=== PATIENT | female | born 1935 | race Caucasian/White ===

== ENCOUNTER 2016-07-10 16:44 | Inpatient (IN) | payer OTHER ==
--- NOTE | ~2016-07-10 | HP ---
History And Physical [address] [place]. [address] NAME: MELANI GONZALEZ : 37 STATUS : ADM IN PAT#: [id number] AGE: 81 ADM/REG DATE : 07/10/16 MR#: [id number] REPORT SERV DATE: 07/11/16 DICTATED BY: JITENDRA NEIL DATE: 07/10/16 REPORT STATUS : Draft TRANSCRIBED BY: MODL DATE: 07/10/16 DATE OF ADMISSION: 07/10/2016 POINT OF ENTRY: [facility] Emergency Department. PRIMARY CARE PHYSICIAN: None at this time. CHIEF COMPLAINT: Altered mental status. HISTORY OF PRESENT ILLNESS: Ms. Gonzalez is an 81-year-old female with history of COPD, hypertension, and hyperlipidemia, who was brought to the emergency department by EMS today for reports of altered mental status and also incidentally found to have hypoglycemia with a blood sugar of 66. The patient is altered and unable to provide any history. Unfortunately, there was no family at bedside. I do not know why EMS was called, but when they came to the scene, she was found to have a blood sugar of 66. She was given some oral glucose tablets. Upon initial evaluation here in the emergency department, her blood sugar was 116 and few hours later, it dropped to 76 requiring an amp of D50, and it is now greater than 200. Workup in the ER is notable for stable vital signs. Labs unremarkable, except for a mild metabolic acidosis. Urine drug screen was negative. CT scan of the brain was unremarkable. Serum drug screen was positive for salicylate level of 39.7. In addition to the D50 for hypoglycemia, the patient was started on a bicarbonate drip for her salicylate toxicity and admitted to the Hospitalist Service for further evaluation and management. REVIEW OF SYSTEMS: The patient is unable to provide to me any review of systems secondary to her altered mental status. PREVIOUS MEDICAL HISTORY: 1. COPD. 2. Active tobacco abuse. 3. Hypertension. 4. Hyperlipidemia. SURGICAL HISTORY: Unknown due to altered mental status. ALLERGIES: UNKNOWN DUE TO ALTERED MENTAL STATUS. HOME MEDICATIONS: These have yet to be confirmed by pharmacy in the morning, but include: 1. Alendronate. 2. Lotrel. 3. Symbicort. 4. Lipitor. 5. Zyrtec. 6. Singulair. History And Physical [address] [place]. [address] NAME: MELANI GONZALEZ : 37 STATUS : ADM IN [facility]#: [id number] AGE: 81 ADM/REG DATE : 07/10/16 MR#: [id number] REPORT SERV DATE: 07/11/16 DICTATED BY: JITENDRA NEIL DATE: 07/10/16 REPORT STATUS : Draft TRANSCRIBED BY: MODL DATE: 07/10/16 7. MiraLAX. 8. Spiriva. 9. ProAir. SOCIAL HISTORY: She does endorse smoking. Denies any alcohol. Denies any illicits. FAMILY HISTORY: Unknown secondary to altered mental status. LABORATORIES AND IMAGIN. ABG; pH is 7.33, pCO2 is 44, pO2 is 87, bicarbonate is 22.5, saturating 96% on 2 L by nasal cannula. 2. Sodium 140, potassium 3.5, chloride 107, carbon dioxide 27, BUN 19, creatinine 0.41, glucose is 103, calcium is 7.5, protein is 6.2, albumin is 3.1, bilirubin is 0.7, ALT is 33, AST is 34, alkaline phosphatase is 75. 3. White count is 7.0, hemoglobin is 12.1, hematocrit is 35.6, platelet count is 215. 4. Troponin 0.02. 5. Urine drug screen is negative. Acetaminophen and alcohol levels also negative. Salicylate level is 39.7. 6. Urinalysis: Specific gravity is 1.026. Positive ketones. Negative infection. 7. Chest x-ray per my review shows COPD-type changes with hyperinflation and prominent vasculature as well as flattened diaphragms, but no focal consolidation or infiltrate. 8. CT scan of the brain shows chronic ischemic changes, but no acute intracranial abnormality. PHYSICAL EXAMINATION: VITAL SIGNS: Temperature is 98.1 degrees Fahrenheit, pulse is 71, respirations 19, saturating 97% on 2 L by nasal cannula, blood pressure 110/53. GENERAL: The patient is awake, alert. She is disheveled and unkempt appearing elderly female. No family is at bedside. HEENT: Atraumatic and normocephalic. The patient does have moist mucous membranes, but also evidence of oropharyngeal thrush. NECK: No jugular venous distention. No carotid bruits. CARDIAC: Regular rate and rhythm. No murmurs, rubs, or gallops. Normal S1 and S2. LUNGS: Prolonged respiratory phase and decreased breath sounds at bases, but no wheezes, rhonchi, or crackles. ABDOMEN: Soft, nontender, nondistended. Good bowel sounds. No rebound, guarding, or rigidity. EXTREMITIES: Warm and well perfused. No cyanosis, clubbing, or edema. SKIN: Warm and dry. PSYCH: Affect appropriate. NEURO: The patient is awake, alert, able to tell me her name and her date, but otherwise is not oriented to place or time. Cranial nerves II through XII are grossly intact. Speech is normal. Gait not assessed. The patient does have some evidence of memory impairment as well as what appears to be some confabulation and perseveration as well. ASSESSMENT: Ms. Gonzalez is an 81-year-old female, brought to the emergency department by EMS [facility] [address] [address] NAME: MELANI GONZALEZ : 37 STATUS : ADM IN [facility]#: [id number] AGE: 81 ADM/REG DATE : 07/10/16 MR#: [id number] REPORT SERV DATE: 07/11/16 DICTATED BY: JITENDRA NEIL DATE: 07/10/16 REPORT STATUS : Draft TRANSCRIBED BY: CECE DATE: 07/10/16 for altered mental status, found to have evidence of hypoglycemia as well as salicylate toxicity. PROBLEM LIST: 1. Acute encephalopathy. 2. Hypoglycemia, now resolved. 3. Salicylate toxicity. 4. Active tobacco abuse. 5. Chronic obstructive pulmonary disease. 6. Hypertension. PLAN: 1. Altered mental status. The patient's altered mental status is likely secondary to her salicylate toxicity as well as from her hypoglycemia. CT scan of the brain is unremarkable. Urine drug screen, urinalysis, and other workup so far has been unremarkable. We will check ammonia level, thyroid function studies as well as B12. Given evidence of the patient's confabulation and persistent altered mental status despite correction of her hypoglycemia, we will check an MRI of the brain with and without contrast as well as place the patient empirically on thiamine, folate, and a multivitamin. Hold all sedating medications. 2. Hypoglycemia. This has now resolved. There does not appear to be any history of diabetes. I suspect this is all due to her salicylate toxicity. We will check q.2 hours glucose's overnight to ensure that she stays euglycemic to slightly hyperglycemic. Continue D5 drip. 3. Salicylate toxicity. The patient's level of 39.7 is just mildly above the upper limit of normal. She does not have any nausea or vomiting. She is altered and unable to tell me if she has any tinnitus, but does have altered mental status concerning for salicylate toxicity. She received an amp of bicarb in the ER and is now on a bicarb drip for alkalinization of her urine. We are going to maintain normal glucose levels. We will repeat an aspirin level in the morning. 4. COPD. No evidence of any acute exacerbation at this time. We will place her on p.r.n. DuoNeb. 5. DVT prophylaxis. Lovenox subcutaneously. CODE STATUS: The patient wished to be full code. JCB/MODL Jitendra Neil MD / [id number] CC: Vinicio Sarkar MD
--- NOTE | ~2016-07-10 | IDS ---
Interim Discharge Summary [facility] [address] [place]. [address] NAME: MELANI GONZALEZ : 37 STATUS : ADM IN PAT#: [id number] AGE: 81 ADM/REG DATE : 07/10/16 MR#: [id number] REPORT SERV DATE: 07/14/16 DICTATED BY: DATE: REPORT STATUS : Draft TRANSCRIBED BY: MODL DATE: 07/14/16 ADMISSION DATE: 07/10/2016 DISCHARGE DATE: CURRENT INTERIM DISCHARGE DIAGNOSES: 1. Salicylate toxicity. 2. Acute encephalopathy. 3. Hypoglycemia. 4. Chronic obstructive pulmonary disease. 5. Active tobacco abuse. 6. Hypertension. 7. Hyperlipidemia. 8. Generalized weakness. PROCEDURES AND IMAGIN. 07/10/2016: Portable chest x-ray showed prominent bilateral pulmonary vasculature without interstitial edema probably due to mild chronic cardiac decompensation, aortic atherosclerosis. 2. 07/10/2016: CT of the brain without contrast showed moderate generalized atrophy with no acute pathology. 3. 07/12/2016: Portable chest x-ray showed prominent bronchovascular markings similar to the previous exam. This may be chronic interstitial disease versus vascular congestion or combination. There is increasing density in the left lung base consistent with an infiltrate or atelectasis. 4. 07/14/2016: Portable chest x-ray showed minimal bibasilar atelectasis, infiltrate, and probable bibasilar pleural fluid with stable diffuse interstitial prominence. HISTORY OF PRESENT ILLNESS: This is a pleasant 81-year-old female with history of COPD, hypertension, hyperlipidemia, who came to the ER for reports of altered mental status and was found to also have hypoglycemia with blood sugar of 66. Please see Dr. Yap's admission H and P on 07/10/2016. The patient had a urine drug screen, on which, Tylenol and alcohol was negative, but her salicylate level was 39.7. The patient was placed on a bicarb drip until she had resolution of her salicylate toxicity. The patient has continued to have altered mental status that fluctuates during the day since this event. The patient can occasionally respond to direct questions, but not able to give her date and name. The patient is able to assist to roll over and follow simple commands. At times, alternating with the patient, is able to tell you that she has been taking too many aspirin at home for her chronic back pain. The patient has continued to require 2-3 L of oxygen to maintain an O2 saturation of greater than 92%. The patient's ammonia level on admit was 11, folate was 22.1. B12 was 786. TSH was 0.496. Free T4 was 0.81. The patient has been on Symbicort, Spiriva, Singulair, and ProAir nebs. The patient has been on Habitrol patch for her tobacco abuse. The patient has not required anything besides D5W for her hypoglycemia. This was discontinued on 07/12/2016 due to the fact that the patient had been agitated and was pulling out her IVs and trying to get out of bed. The patient has required a sitter until 12 noon on 07/13/2016. The patient has also been up in the Ary chair and up in the bedside chair. Patient's subsequent ABG on 07/12/2016 after being on the bicarb drip showed Interim Discharge Summary [address] [address] NAME: MELANI GONZALEZ : 37 STATUS : ADM IN [facility]#: [id number] AGE: 81 ADM/REG DATE : 07/10/16 MR#: [id number] REPORT SERV DATE: 07/14/16 DICTATED BY: DATE: REPORT STATUS : Draft TRANSCRIBED BY: CECE DATE: 07/14/16 respiratory acidosis with compensated metabolic alkalosis secondary to the bicarb drip and that was stopped. We have asked the Case Management to evaluate for a safe discharge and have been unable to reach any family members. During vague moments of questionable lucidity, the patient stated that all of her relatives lived in [facility]. All the numbers in her chart have been tried and they are all discontinued at this time. Case Management has worked extensively trying to find any possible family members or anything that knows anything about this patient and the patient is unable to give any information. Physical Therapy and Occupational Therapy have been in to see her and will need to continue to follow her. I have ordered a speech therapy evaluation to make sure that the patient is able to swallow adequately due to her confusion. She had a CT of the chest on 07/14/2016 to rule out pneumonia. We are also waiting for the results of urinalysis check. Questionable if her altered mental status is due to the remnants of the salicylate poisoning or hypercapnia. Her present ABGs on 3 L nasal cannula: pH is 7.52, pCO2 is 33, pO2 is 59, base excess is 4.1, HCO3 is 26.7, O2 saturation was 91.8%. Patient's blood glucoses have remained in the low 100s down to 83. The patient is on hypoglycemia protocol if her blood sugar drops less than 80. The patient has had poor appetite and is not taking in her supplements well. Labs at this time: Sodium is 139, potassium is 3.4, chloride is 102, bicarb is 28, BUN is 6, creatinine is 0.21. GFR is 141, glucose is 83, calcium is 8.2, magnesium is 2.0, phosphorus is 2.3. WBCs 10.7, hemoglobin 11.8, hematocrit is 35.3, and platelets are 217. SLC/MODL Kenia Hope NP / [id number] CC: Vinicio Sarkar MD
--- NOTE | ~2016-07-10 | DS ---
Discharge Summary [facility] [address] [facility] [place]. [address] NAME: MELANI GONZALEZ : 37 STATUS : DIS IN PAT#: [id number] AGE: 81 ADM/REG DATE : 07/10/16 MR#: [id number] REPORT SERV DATE: 07/18/16 DICTATED BY: ALVARO GARCIA DATE: 07/17/16 REPORT STATUS : Draft TRANSCRIBED BY: MODL DATE: 07/17/16 ADMISSION DATE: 07/10/2016 DISCHARGE DATE: 07/17/2016 CONDITION ON DISCHARGE: Stable. DISPOSITION: Discharged to [facility] for detention facility/inpatient rehab care. DISCHARGE DIAGNOSES: 1. Acute encephalopathy-resolved. 2. Chronic obstructive pulmonary disease-stable. 3. Chronic hypoxic respiratory failure-the patient is doing well. Currently on 2 L of oxygen per nasal cannula. 4. Active tobacco use-the patient has stopped while in the hospital and it has been days since she has smoked. 5. Hypertension-stable. 6. Hyperlipidemia-stable. 7. Generalized weakness and general physical debility for which the patient is being placed in rehab at this time as she lives alone and is extremely weak and physically deconditioned. 8. Salicylate toxicity-this has resolved also. HOSPITAL COURSE: For hospital course-until 07/16/2016, please look at interim discharge summary that has been dictated by my colleague. I took care of this patient on 07/16/2016 and discharging the patient on 07/17/2016. The only change that happened during the time that I took care of this patient was that the patient was mildly confused, and however, she had come out of her acute encephalopathy. To determine her decision making capacity we had to get a Psychiatric consult. Dr. Faust consulted on the patient and confirmed that she did have decision making capacity on her own. Hence, the patient gave us permission to transfer her to [facility]/inpatient rehab where she will get more physical therapy, so she can get stronger and hopefully be strong in the future to be able to go back home to live on her own. Essentially, the patient was admitted with altered mental status, history of salicylate toxicity, acute exacerbation of COPD, and hypoxic respiratory failure through the emergency department on 07/11/2016. The patient was given symptomatic and supportive care, and with that the patient's condition significantly improved and her mental status improved also. The patient currently is on Seroquel and she has been doing well on that. She had to be started on this because of acute confusion that happened while in the hospital. She responded to this and for the last three to four days her mental status has cleared up completely and she is almost back to normal, and does have decision-making capacity, and hence, she is being sent to inpatient rehab. She is going to the rehab on the following medications. The only new medication that she is going to go home would be azithromycin 250 mg a day until 07/20/2016, until she finishes this course for the acute bronchitis/pneumonia. I remember the patient has already finished several days of intravenous antibiotics while in the hospital. Other medications she will be going home Discharge Summary [address] [address] NAME: MELANI GONZALEZ : 37 STATUS : DIS IN PAT#: [id number] AGE: 81 ADM/REG DATE : 07/10/16 MR#: [id number] REPORT SERV DATE: 07/18/16 DICTATED BY: ALVARO GARCIA DATE: 07/17/16 REPORT STATUS : Draft TRANSCRIBED BY: CECE DATE: 07/17/16 with include the following: Proventil two puffs q.4 hours p.r.n., folic acid 1 mg once a day, Lipitor 10 mg once a day, MiraLAX powder once a day, Seroquel 25 mg p.o. at bedtime, Singulair 10 mg p.o. at bedtime, multivitamin tablet, Spiriva inhaler, and also inhaled corticosteroids which she will be going to the rehab on. The patient is on 2 L of oxygen via nasal cannula currently and this will be continued. There is likely a chance that the patient will need oxygen indefinitely given her COPD and tobacco abuse up until recently. The most recent labs that I have on this patient upon discharge include the following: CBC on 07/17/2016 shows WBC 7, hemoglobin 11, hematocrit 32.7, and platelet of 298. Electrolyte profile shows sodium 138, potassium 3.8, BUN 7, creatinine 0.25. Chest x-ray shows stable diffuse bilateral interstitial prominence; however, improved aeration of the lung basis. The patient also had an arterial blood gas done on 07/17/2016 that shows pH of 7.4, pCO2 of 44, PO2 of 68, and O2 sats of 93.2 on 32% inhaled oxygen. However when this was lower to about 28% the patient was able to tolerate this. The patient is hence being sent to inpatient rehab/SNF which is [facility] for ongoing care purposes. I have spent about 40 minutes in coordinating discharge care of this patient including [id number] encounter and summarizing this discharge. DAE/CECE Alvaro Garcia M.D. / [id number] CC: Alvaro Garcia M.D.
--- NOTE | ~2016-07-10 | CN ---
Consultation Report [facility] [address] [place]. [address] NAME: MELANI GONZALEZ : 37 STATUS : ADM IN PAT#: [id number] AGE: 81 ADM/REG DATE : 07/10/16 MR#: [id number] REPORT SERV DATE: 07/16/16 DICTATED BY: ATUL NUR DATE: 07/16/16 REPORT STATUS : Draft TRANSCRIBED BY: CECE DATE: 07/16/16 PSYCHIATRIC CONSULTATION. DATE OF CONSULTATION: 07/16/2016 I reviewed this patient's medical record. I discussed the patient's status with her nurse. I discussed the patient's status with our social work professor. HISTORY OF PRESENT ILLNESS: She was admitted with an acute change of her mental status. At this time, I am consulted to give an opinion on her capacity for placement and general decision making. PAST PSYCHIATRIC HISTORY: She reports no preexisting psychiatric issues. SOCIAL HISTORY: She is single. She never . She lives alone at [facility]. MENTAL STATUS: She was awake and alert. She was very pleasant and cooperative in attitude. She clearly had a problem with word finding. She had some awareness of this problem. On one occasion, she said "I can't say my words right." Her mood was euthymic. Her affect was full and appropriate. She had some insight into the reason for this admission. She said "I don't know what happened"-"the police found me"-"they tell me I was out of it." She was oriented to "[facility]." When I asked the year, she said "[facility]." She was not able to say the month. She told me she lived in "[address]." She was not able to say the word "[facility]," but after a number of tries, she came up with the word "[facility]." She said she moved to [place] from [place] after her mother about 15 years ago. 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 She said she was willing to go to a fpc "if that is what they recommend." DIAGNOSIS: Encephalopathy, improving, now with residual expressive dysphasia. 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 OSMIN/MODL Atul Nur M.D. / [id number] CC: Samaria Sheppard M.D. UNKNOWN
[2016-07-10 16:12] LABS: ALLENS TEST Pos; BE (BASE EXCESS) -3.4 MEQ/L (0 +/- 2.5); CARBOXYHEMOGLOBIN 3.1 % (0-3); DEVICE NC; HCO3 (ACTUAL BICARBONATE) 22.5 MEQ/L (23-27); HEMOBLOGIN CONTENT 12.7 G/DL (12-16); INSTRUMENT SERIAL # 8087; METHEMOGLOBIN 0.1 % (0-3); O2 CONTENT 16.6 VOL% (18-24); PCO2 (CO2 TENSION) 44 MMHG (35-45); PO2 (O2 TENSION) 87 MMHG (79-93); SAMPLE Arterial; pH 7.33 (7.37-7.43)
[2016-07-10 16:38] LABS: BASOPHILS 0.1 %; BASOPHILS ABSOLUTE 0.01 10/3/uL (0.0-0.16); EOSINOPHILS 0 %; ER CBC TAT 0 Hrs 12 Mins; HEMATOCRIT 35.6 % (36.0-48.0); HEMOGLOBIN 12.1 g/dL (12.0-16.0); IMMATURE GRANULOCYTES 2.4 %; IMMATURE GRANULOCYTES ABSOLUTE 0.17 10/3/uL (0.0-0.11); LYMPHOCYTES 40.4 %; LYMPHOCYTES ABSOLUTE 2.83 10/3/uL (0.67-4.30); MEAN CORPUSCULAR HEMOGLOB 30.6 pg (26.0-34.0); MEAN CORPUSCULAR VOLUME 89.9 fL (80-100); MEAN PLATELET VOLUME 8.7 fL (9.2-13.0); MONOCYTES 7.1 %; NEUTROPHILS ABSOLUTE 3.49 10/3/uL (2.02-8.40); PLATELET COUNT 215 10/3/uL (150-400); RED CELL COUNT 3.96 10/6/uL (4.0-5.6)
[2016-07-10 16:39] LABS: MANUAL DIFF NO %
[2016-07-10 16:53] LABS: ACETAMINOPHEN LEVEL (TYLENOL) < 2.0 MCG/ML (10.0-20.0); ALBUMIN 3.1 G/DL (3.5-5.0); ALCOHOL < 10 MG/DL (0); ALKALINE PHOSPHATASE 75 U/L (45-117); BUN (BLOOD UREA NITROGEN) 19 MG/DL (6-23); CALCIUM, SERUM 7.5 MG/DL (8.5-10.4); CHLORIDE, SERUM 107 MMOL/L (96-112); CO2 (CARBON DIOXIDE) 27 MMOL/L (24-34); CREATININE 0.41 MG/DL (0.55-1.02); GFR AFRICAN AMERICAN 113 ML/MIN (>=60); GFR NON AFRICAN AMERICAN 98 ML/MIN (>=60); GLOBULIN 3.1 G/DL (2.5-4.1); GLUCOSE, SERUM 103 MG/DL (60-99); POTASSIUM, SERUM 3.5 MMOL/L (3.5-5.3); SALICYLATE 39.7 MG/DL (-); SGOT(AST) 34 U/L (5-40); SGPT(ALT) 33 U/L (5-65); SODIUM, SERUM 140 MMOL/L (135-148); TOTAL BILIRUBIN 0.7 MG/DL (0-1.2); TOTAL PROTEIN 6.2 G/DL (6.0-8.5); TROPONIN I 0.02 NG/ML (<0.05)
[2016-07-10 17:13] LABS: ER DIFF TAT 0 Hrs 47 Mins; IMMATURE GRANS ABSOLUTE (CALC) 0.14 10/3/uL (0.0-0.11); LYMPHOCYTES 23 %; LYMPHOCYTES ABSOLUTE (CALC) 1.61 10/3/uL (0.67-4.30); METAMYELOCYTES 2 %; MONOCYTES 17 %; MONOCYTES ABSOLUTE (CALC) 1.19 10/3/uL (0.21-1.20); NEUTROPHILS ABSOLUTE (CALC) 4.06 10/3/uL (2.02-8.40); SEGMENTED NEUTROPHIL (0) 58 %; TOTAL NUCLEATED CELLS 100
[2016-07-10 17:14] LABS: ACANTHOCYTES FEW (3-10/OIF); BURR CELLS 1+ (3-10/OIF) (0-2/OIF); OVALOCYTES 1+ (3-10/OIF) (0-2/OIF); PLATELET ESTIMATE ADQ (ADEQUATE)
[2016-07-10] MEDS ORDERED: FOSAMAX70 MG PO (17:56)
[2016-07-10] MEDS ORDERED: LOTREL1 CA1 PO (17:57)
[2016-07-10] MEDS ORDERED: *UNABLE2 (17:57)
[2016-07-10] MEDS ORDERED: LIPITOR10 PO (17:59)
[2016-07-10] MEDS ORDERED: SYMBICORT 160/41 INH INH (17:59)
[2016-07-10] MEDS ORDERED: ZYRTEC ALLGY10 MG PO (17:59)
[2016-07-10] MEDS ORDERED: SINGULAIR1 PO (18:00)
[2016-07-10] MEDS ORDERED: SPIRIVA INH (18:01)
[2016-07-10] MEDS ORDERED: MIRALAX POWDER1 PKT PO (18:01)
[2016-07-10] MEDS ORDERED: PROAIR HFA INH (18:02)
[2016-07-10 18:41] LABS: ASCORBIC ACID (UR NOT ORDER) 40 (NEG); BILIRUBIN, URINE NEGATIVE (NEG); ER URINALYSIS TAT 0 Hrs 13 Mins; KETONE, URINE 80 MG/DL (NEG); LEUKOCYTE ESTERASE(NOT OR NEG (NEG); NITRITE (URINE) NEG (NEG); WBC (NOT ORDERED) (RFLEX) 3 (0-5)
[2016-07-10 18:48] LABS: AMPHETAMINES (NOT ORD) NEG (NEG); BARBITURATES (NOT ORDERED NEG (NEG); BENZODIAZEPINES (NOT ORD) NEG (NEG); CANNABINOIDS (THC) NEG (NEG); COCAINE (NOT ORDERED) NEG (NEG); PHENCYCLIDINE(PCP) NEG (NEG); TRICYCLICS NEG (NEG)
[2016-07-10 18:49] LABS: OPIATES NEG (NEG)
[2016-07-10 21:46] LABS: LACTATE 0.7 MMOL/L (0.3-2.4)
[2016-07-11 02:43] LABS: BUN (BLOOD UREA NITROGEN) 17 MG/DL (6-23); CALCIUM, SERUM 7.6 MG/DL (8.5-10.4); CHLORIDE, SERUM 106 MMOL/L (96-112); CO2 (CARBON DIOXIDE) 27 MMOL/L (24-34); CREATININE 0.48 MG/DL (0.55-1.02); FREE T4 0.81 NG/DL (0.76-1.46); GFR AFRICAN AMERICAN 107 ML/MIN (>=60); GFR NON AFRICAN AMERICAN 93 ML/MIN (>=60); SALICYLATE 29.2 MG/DL (-); SODIUM, SERUM 142 MMOL/L (135-148); ULTRASENSITIVE TSH 0.496 MCIU/ML (0.358-3.740)
[2016-07-11 02:47] LABS: FOLATE 22.1 NG/ML (>5.2); GLUCOSE, SERUM 126 MG/DL (60-99)
[2016-07-11 06:44] LABS: HEMATOCRIT 35.8 % (36.0-48.0); HEMOGLOBIN 12.2 g/dL (12.0-16.0); MEAN CORPUS HGB CONC 34.1 g/dL (32.0-36.0); MEAN CORPUSCULAR HEMOGLOB 30.9 pg (26.0-34.0); MEAN CORPUSCULAR VOLUME 90.6 fL (80-100); MEAN PLATELET VOLUME 8.9 fL (9.2-13.0); PLATELET COUNT 212 10/3/uL (150-400); RBC DISTRIBUTION WIDTH 16.7 % (12.0-16.0); RED CELL COUNT 3.95 10/6/uL (4.0-5.6); WHITE BLOOD CELLS 4.2 10/3/uL (4.5-10.5)
[2016-07-11 06:45] LABS: MANUAL DIFF YES %
[2016-07-11 07:32] LABS: BAND NEUTROPHILS 13 %; IMMATURE GRANS ABSOLUTE (CALC) 0.04 10/3/uL (0.0-0.11); LYMPHOCYTES 14 %; LYMPHOCYTES ABSOLUTE (CALC) 0.59 10/3/uL (0.67-4.30); METAMYELOCYTES 1 %; MONOCYTES 1 %; MONOCYTES ABSOLUTE (CALC) 0.04 10/3/uL (0.21-1.20); NEUTROPHILS ABSOLUTE (CALC) 3.53 10/3/uL (2.02-8.40); PLATELET ESTIMATE ADQ (ADEQUATE); SEGMENTED NEUTROPHIL (0) 71 %; TOTAL NUCLEATED CELLS 100
[2016-07-11 07:33] LABS: ACANTHOCYTES OCC (0-2/OIF); POIKILOCYTOSIS 1+ (5-10/OIF) (0-5/OIF)
[2016-07-12 05:59] LABS: ALLENS TEST Pos; BE (BASE EXCESS) 15.8 MEQ/L (0 +/- 2.5); CARBOXYHEMOGLOBIN 0.9 % (0-3); HCO3 (ACTUAL BICARBONATE) 43.6 MEQ/L (23-27); HEMOBLOGIN CONTENT 11.8 G/DL (12-16); INSTRUMENT SERIAL # 8083; O2 CONTENT 15.7 VOL% (18-24); OPERATOR ID 18978; PCO2 (CO2 TENSION) 71 MMHG (35-45); PO2 (O2 TENSION) 76 MMHG (79-93); SAMPLE Arterial
[2016-07-12 07:10] LABS: ALBUMIN 2.7 G/DL (3.5-5.0); ALKALINE PHOSPHATASE 73 U/L (45-117); CALCIUM, SERUM 7.1 MG/DL (8.5-10.4); CHLORIDE, SERUM 92 MMOL/L (96-112); CREATININE 0.25 MG/DL (0.55-1.02); GFR AFRICAN AMERICAN 133 ML/MIN (>=60); GFR NON AFRICAN AMERICAN 115 ML/MIN (>=60); GLOBULIN 2.8 G/DL (2.5-4.1); POTASSIUM, SERUM 2.7 MMOL/L (3.5-5.3); SALICYLATE 3.9 MG/DL (-); SGOT(AST) 39 U/L (5-40); SGPT(ALT) 33 U/L (5-65); SODIUM, SERUM 138 MMOL/L (135-148); TOTAL BILIRUBIN 0.4 MG/DL (0-1.2); TOTAL PROTEIN 5.5 G/DL (6.0-8.5)
[2016-07-12 07:11] LABS: BUN (BLOOD UREA NITROGEN) 7 MG/DL (6-23); GLUCOSE, SERUM 89 MG/DL (60-99)
[2016-07-12 07:13] LABS: PHOSPHORUS, SERUM 1.2 MG/DL (2.5-4.5)
[2016-07-12 07:14] LABS: CO2 (CARBON DIOXIDE) 41 MMOL/L (24-34)
[2016-07-12 17:18] LABS: BUN (BLOOD UREA NITROGEN) 6 MG/DL (6-23); CALCIUM, SERUM 7.3 MG/DL (8.5-10.4); CHLORIDE, SERUM 99 MMOL/L (96-112); CO2 (CARBON DIOXIDE) 35 MMOL/L (24-34); CREATININE 0.25 MG/DL (0.55-1.02); GFR AFRICAN AMERICAN 133 ML/MIN (>=60); GFR NON AFRICAN AMERICAN 115 ML/MIN (>=60); GLUCOSE, SERUM 81 MG/DL (60-99); POTASSIUM, SERUM 3.5 MMOL/L (3.5-5.3); SODIUM, SERUM 140 MMOL/L (135-148)
[2016-07-13 05:57] LABS: BUN (BLOOD UREA NITROGEN) 5 MG/DL (6-23); CALCIUM, SERUM 7.7 MG/DL (8.5-10.4); CHLORIDE, SERUM 102 MMOL/L (96-112); CO2 (CARBON DIOXIDE) 33 MMOL/L (24-34); CREATININE 0.28 MG/DL (0.55-1.02); GFR AFRICAN AMERICAN 128 ML/MIN (>=60); GFR NON AFRICAN AMERICAN 111 ML/MIN (>=60); GLUCOSE, SERUM 85 MG/DL (60-99); POTASSIUM, SERUM 3.5 MMOL/L (3.5-5.3); SODIUM, SERUM 140 MMOL/L (135-148)
[2016-07-13 06:00] LABS: PHOSPHORUS, SERUM 1.8 MG/DL (2.5-4.5)
[2016-07-14 06:28] LABS: HEMATOCRIT 35.3 % (36.0-48.0); HEMOGLOBIN 11.8 g/dL (12.0-16.0); MANUAL DIFF YES %; MEAN CORPUS HGB CONC 33.4 g/dL (32.0-36.0); MEAN CORPUSCULAR HEMOGLOB 30.7 pg (26.0-34.0); MEAN CORPUSCULAR VOLUME 91.9 fL (80-100); MEAN PLATELET VOLUME 8.7 fL (9.2-13.0); PLATELET COUNT 217 10/3/uL (150-400); RBC DISTRIBUTION WIDTH 15.8 % (12.0-16.0); RED CELL COUNT 3.84 10/6/uL (4.0-5.6); WHITE BLOOD CELLS 10.7 10/3/uL (4.5-10.5)
[2016-07-14 06:32] LABS: BUN (BLOOD UREA NITROGEN) 6 MG/DL (6-23); CALCIUM, SERUM 8.2 MG/DL (8.5-10.4); CHLORIDE, SERUM 102 MMOL/L (96-112); CREATININE 0.21 MG/DL (0.55-1.02); GFR AFRICAN AMERICAN 141 ML/MIN (>=60); GFR NON AFRICAN AMERICAN 122 ML/MIN (>=60); GLUCOSE, SERUM 83 MG/DL (60-99); PHOSPHORUS, SERUM 2.3 MG/DL (2.5-4.5); POTASSIUM, SERUM 3.4 MMOL/L (3.5-5.3); SODIUM, SERUM 139 MMOL/L (135-148)
[2016-07-14 06:33] LABS: CO2 (CARBON DIOXIDE) 28 MMOL/L (24-34)
[2016-07-14 07:39] LABS: BAND NEUTROPHILS 7 %; BURR CELLS 1+ (3-10/OIF) (0-2/OIF); LYMPHOCYTES 9 %; LYMPHOCYTES ABSOLUTE (CALC) 0.96 10/3/uL (0.67-4.30); MONOCYTES 33 %; MONOCYTES ABSOLUTE (CALC) 3.53 10/3/uL (0.21-1.20); NEUTROPHILS ABSOLUTE (CALC) 6.21 10/3/uL (2.02-8.40); PLATELET ESTIMATE ADQ (ADEQUATE); POIKILOCYTOSIS 1+ (5-10/OIF) (0-5/OIF); SEGMENTED NEUTROPHIL (0) 51 %; TOTAL NUCLEATED CELLS 100
[2016-07-14 12:10] LABS: BE (BASE EXCESS) 4.1 MEQ/L (0 +/- 2.5); CARBOXYHEMOGLOBIN 0.6 % (0-3); DEVICE NC; HCO3 (ACTUAL BICARBONATE) 26.7 MEQ/L (23-27); HEMOBLOGIN CONTENT 12.6 G/DL (12-16); INSTRUMENT SERIAL # 35151; METHEMOGLOBIN 0.4 % (0-3); O2 CONTENT 16.1 VOL% (18-24); PCO2 (CO2 TENSION) 33 MMHG (35-45); PO2 (O2 TENSION) 59 MMHG (79-93); SAMPLE Arterial; pH 7.52 (7.37-7.43)
[2016-07-14 15:57] LABS: ASCORBIC ACID (UR NOT ORDER) NEG (NEG); BILIRUBIN, URINE NEGATIVE (NEG); KETONE, URINE 20 MG/DL (NEG); LEUKOCYTE ESTERASE(NOT OR MOD (NEG); WBC (NOT ORDERED) (RFLEX) 101 (0-5)
[2016-07-15 05:53] LABS: BUN (BLOOD UREA NITROGEN) 6 MG/DL (6-23); CALCIUM, SERUM 8.3 MG/DL (8.5-10.4); CHLORIDE, SERUM 101 MMOL/L (96-112); CO2 (CARBON DIOXIDE) 28 MMOL/L (24-34); CREATININE 0.28 MG/DL (0.55-1.02); GFR AFRICAN AMERICAN 128 ML/MIN (>=60); GFR NON AFRICAN AMERICAN 111 ML/MIN (>=60); GLUCOSE, SERUM 89 MG/DL (60-99); PHOSPHORUS, SERUM 2.4 MG/DL (2.5-4.5); POTASSIUM, SERUM 3.6 MMOL/L (3.5-5.3); SODIUM, SERUM 138 MMOL/L (135-148)
[2016-07-15 07:57] LABS: HEMATOCRIT 36.5 % (36.0-48.0); HEMOGLOBIN 12.4 g/dL (12.0-16.0); MANUAL DIFF YES %; MEAN CORPUSCULAR HEMOGLOB 31.1 pg (26.0-34.0); MEAN CORPUSCULAR VOLUME 91.5 fL (80-100); MEAN PLATELET VOLUME 8.9 fL (9.2-13.0); PLATELET COUNT 281 10/3/uL (150-400); RBC DISTRIBUTION WIDTH 15.7 % (12.0-16.0); RED CELL COUNT 3.99 10/6/uL (4.0-5.6); WHITE BLOOD CELLS 11.8 10/3/uL (4.5-10.5)
[2016-07-15 08:13] LABS: BAND NEUTROPHILS 6 %; IMMATURE GRANS ABSOLUTE (CALC) 0.24 10/3/uL (0.0-0.11); LYMPHOCYTES 16 %; LYMPHOCYTES ABSOLUTE (CALC) 1.89 10/3/uL (0.67-4.30); METAMYELOCYTES 2 %; MONOCYTES 29 %; MONOCYTES ABSOLUTE (CALC) 3.42 10/3/uL (0.21-1.20); NEUTROPHILS ABSOLUTE (CALC) 6.25 10/3/uL (2.02-8.40); PLATELET ESTIMATE ADQ (ADEQUATE); RBC MORPHOLOGY NORM (NORMAL); SEGMENTED NEUTROPHIL (0) 47 %; TOTAL NUCLEATED CELLS 100
[2016-07-16 06:12] LABS: HEMATOCRIT 37.6 % (36.0-48.0); HEMOGLOBIN 12.1 g/dL (12.0-16.0); MEAN CORPUSCULAR HEMOGLOB 29.6 pg (26.0-34.0); MEAN CORPUSCULAR VOLUME 91.9 fL (80-100); MEAN PLATELET VOLUME 9.4 fL (9.2-13.0); PLATELET COUNT 221 10/3/uL (150-400); RBC DISTRIBUTION WIDTH 15.7 % (12.0-16.0); RED CELL COUNT 4.09 10/6/uL (4.0-5.6); WHITE BLOOD CELLS 9.5 10/3/uL (4.5-10.5)
[2016-07-16 06:13] LABS: MANUAL DIFF YES %; MEAN CORPUS HGB CONC 32.2 g/dL (32.0-36.0)
[2016-07-16 06:22] LABS: BUN (BLOOD UREA NITROGEN) 7 MG/DL (6-23); CALCIUM, SERUM 8.5 MG/DL (8.5-10.4); CHLORIDE, SERUM 105 MMOL/L (96-112); CO2 (CARBON DIOXIDE) 25 MMOL/L (24-34); CREATININE 0.31 MG/DL (0.55-1.02); GFR AFRICAN AMERICAN 124 ML/MIN (>=60); GFR NON AFRICAN AMERICAN 107 ML/MIN (>=60); GLUCOSE, SERUM 90 MG/DL (60-99); PHOSPHORUS, SERUM 2.7 MG/DL (2.5-4.5); SODIUM, SERUM 138 MMOL/L (135-148); VANCOMYCIN TROUGH 4.6 MCG/ML (10.0-20.0)
[2016-07-16 06:23] LABS: POTASSIUM, SERUM 4.2 MMOL/L (3.5-5.3)
[2016-07-16 06:44] LABS: BAND NEUTROPHILS 7 %; LYMPHOCYTES 17 %; LYMPHOCYTES ABSOLUTE (CALC) 1.62 10/3/uL (0.67-4.30); METAMYELOCYTES 1 %; MONOCYTES 25 %; MONOCYTES ABSOLUTE (CALC) 2.38 10/3/uL (0.21-1.20); NEUTROPHILS ABSOLUTE (CALC) 5.42 10/3/uL (2.02-8.40); PLATELET ESTIMATE ADQ (ADEQUATE); RBC MORPHOLOGY NORM (NORMAL); SEGMENTED NEUTROPHIL (0) 50 %; TOTAL NUCLEATED CELLS 100
[2016-07-17 05:01] LABS: ALLENS TEST Pos; BE (BASE EXCESS) 2.8 MEQ/L (0 +/- 2.5); CARBOXYHEMOGLOBIN 1.1 % (0-3); DEVICE NC; HCO3 (ACTUAL BICARBONATE) 27.8 MEQ/L (23-27); HEMOBLOGIN CONTENT 11.7 G/DL (12-16); INSTRUMENT SERIAL # 8083; METHEMOGLOBIN 0.2 % (0-3); O2 CONTENT 15.2 VOL% (18-24); PCO2 (CO2 TENSION) 44 MMHG (35-45); PO2 (O2 TENSION) 68 MMHG (79-93); SAMPLE Arterial; pH 7.42 (7.37-7.43)
[2016-07-17 06:19] LABS: HEMATOCRIT 32.7 % (36.0-48.0); MANUAL DIFF YES %; MEAN CORPUS HGB CONC 33.6 g/dL (32.0-36.0); MEAN CORPUSCULAR HEMOGLOB 30.6 pg (26.0-34.0); MEAN CORPUSCULAR VOLUME 90.8 fL (80-100); PLATELET COUNT 298 10/3/uL (150-400); RBC DISTRIBUTION WIDTH 15.5 % (12.0-16.0)
[2016-07-17 06:26] LABS: BUN (BLOOD UREA NITROGEN) 7 MG/DL (6-23); CALCIUM, SERUM 8.6 MG/DL (8.5-10.4); CHLORIDE, SERUM 103 MMOL/L (96-112); CO2 (CARBON DIOXIDE) 28 MMOL/L (24-34); CREATININE 0.25 MG/DL (0.55-1.02); GFR AFRICAN AMERICAN 133 ML/MIN (>=60); GFR NON AFRICAN AMERICAN 115 ML/MIN (>=60); GLUCOSE, SERUM 84 MG/DL (60-99); POTASSIUM, SERUM 3.8 MMOL/L (3.5-5.3); SODIUM, SERUM 138 MMOL/L (135-148)
[2016-07-17 06:51] LABS: BAND NEUTROPHILS 1 %; LYMPHOCYTES 19 %; LYMPHOCYTES ABSOLUTE (CALC) 1.33 10/3/uL (0.67-4.30); MONOCYTES 27 %; MONOCYTES ABSOLUTE (CALC) 1.89 10/3/uL (0.21-1.20); NEUTROPHILS ABSOLUTE (CALC) 3.78 10/3/uL (2.02-8.40); PLATELET ESTIMATE ADQ (ADEQUATE); POIKILOCYTOSIS 1+ (5-10/OIF) (0-5/OIF); SEGMENTED NEUTROPHIL (0) 53 %; TOTAL NUCLEATED CELLS 100
[2016-07-17 06:52] LABS: ACANTHOCYTES OCC (0-2/OIF); POLYCHROMASIA 1+ (2-5/OIF) (0-1/OIF)
== END 2016-07-17 15:30 | DRG 917 ==
LOC: ER 16:44 → 7NO 21:20
PROVIDERS: Hospitalist; Internal Medicine; Nurse Practitioner Family
DX: T39.011A Poisoning by aspirin, accidental (unintentional), initial encounter (principal); G92 Toxic encephalopathy; J96.11 Chronic respiratory failure with hypoxia; E87.2 Acidosis; J44.1 Chronic obstructive pulmonary disease with (acute) exacerbation; J44.0 Chronic obstructive pulmonary disease with (acute) lower respiratory infection; E16.0 Drug-induced hypoglycemia without coma; T39.095A Adverse effect of salicylates, initial encounter; F17.210 Nicotine dependence, cigarettes, uncomplicated; I10 Essential (primary) hypertension; E78.5 Hyperlipidemia, unspecified; R53.1 Weakness; J20.9 Acute bronchitis, unspecified
CPT/HCPCS: 36600; 70450; 71010; 80048; 80053; 80202; 80305; 80307; 81001; 82140; 82607; 82746; 82805; 82962; 83605; 83735; 84100; 84132; 84145; 84439; 84443; 84484; 85025; 87040; 87077; 87086; 87186; 92610-GN; 93005; 94640; 96365; 96375; 97110-GP; 97116-GP; 97162-GP; 97166-GO; 97535-GO; 99285; A9270-GY; G0480; J0692; J3370